=== PATIENT | male | born 1935 | race Caucasian/White ===

== ENCOUNTER 2017-08-27 20:22 | Emergency (ER) | payer MEDICARE, OTHER ==
--- NOTE | 2017-08-27 23:15 | ER ---
DATE OF SERVICE: 08/27/2017 HPI: A 81-year-old male here with complaints of a nosebleed that has lasted most of the day. He states the right naris doing most of the bleeding. At times, he notices a little bit of blood coming out of the left naris, but he thinks, it is the right naris that is giving him most of his trouble. The patient denies any injuries to the involved area. He states he had a nosebleed about a week ago. He got that under control by packing it. Today, he does not feel like he is able to control it with packing. The patient denies any frequent history of nosebleeds and tells me he is not on any kind of blood thinner other than taking and a baby aspirin daily. He also takes Lipitor and lisinopril. OBJECTIVE: GENERAL APPEARANCE: The patient is awake and alert. No obvious distress. VITAL SIGNS: Reviewed. Blood pressure 143/97. Physical exam, the patient has packing in involving both naris in place, it is blood-soaked bilaterally. I gently removed the packing from the right naris and promptly repacked the right naris with Vaseline gauze. It required three packets, each one is 1 inch x 8 inches long. I removed the packing from the left naris and left it open. The patient had a small amount of drainage down his throat for a couple of minutes. We monitored him for about 20 minutes after the packing was complete, and the patient is no longer having any bleeding and he is not swallowing any blood. DIAGNOSIS: Nosebleed to right naris. TREATMENT PLAN: I advised the patient to keep the packing in for at least 2 days. Since that will end on the weekend, he can remove it gently in 2 or 3 days. He is up here on a fishing trip. He plans on going back home to the [facility] on Thursday. I do want the patient to hold his aspirin for 3 days. After he removes the packing, he is to very gently roll some Vaseline inside both naris once a day with a Q-tip, and I want the patient to follow up with his primary care provider early next week. The patient has no further questions. RIZWANA/JULIETH /[id number] MADDY
--- NOTE | 2017-08-27 23:30 | ER ---
ADDENDUM: Dictating a correction I previously dictated on [facility] chart #[id number]. It turns out this was the wrong label and the wrong patient for the dictation. The correction is Mason Khalil and his . Please make this change to the previous dictation. The remaining portion of the dictation has no corrections just the name and the medical record number. CRS/MODL /[id number]
== END 2017-08-27 20:25 | disposition home or self-care (01) ==
LOC: LB.ED 20:22
DX: R04.0 Epistaxis (principal)
CPT/HCPCS: 30903; 99283-25